=== PATIENT | male | born 1980 | race Caucasian/White ===

== ENCOUNTER → 2017-12-23 13:07 | Outpatient (CLI) | payer OTHER, SELFPAY ==
[2017-12-23 16:25] LABS: Rubella Antibody IgG 29.3 IU/mL (>15)
[2017-12-27 14:26] LABS: Mumps Virus IgG Antibody < 9.00 AU/mL (< 9.00); Rubeola Measles IgG > 300.00 AU/mL (< 25.00)
== END ==
PROVIDERS: PCP Family Medicine; Visit Provider Family Medicine
DX: Z13.9 Encounter for screening, unspecified (principal)
CPT/HCPCS: 36415; 86735; 86762; 86765